=== PATIENT | male | born 1960 | race Caucasian/White ===

== ENCOUNTER → 2022-06-15 08:32 | Outpatient (BNVA) | payer OTHER, SELFPAY | PROVIDERS: Referring Provider Nurse Practitioner Family; Visit Provider Specialist | DX: M17.0 Bilateral primary osteoarthritis of knee (principal) | CPT/HCPCS: 73560; 73565 ==

== ENCOUNTER 2022-09-14 07:40 | Outpatient (CLI) | payer OTHER, SELFPAY ==
--- NOTE | 2022-09-14 08:00 | MR_ITS ---
WS: [id number] MRI LEFT KNEE HISTORY: Progressive LEFT knee pain. COMPARISON: Radiographs 06/15/2022 Anterior cruciate ligament: Intact. Posterior cruciate ligament: Intact. Medial collateral ligament: Intact. Posterior lateral corner structures: Intact. Medial menisci: Small amount of increased T2 signal in the periphery posterior horn. Suspicious for p eripheral tear. Lateral meniscus: Blunting posterior horn lateral meniscus. There is increased T2 signal involving th e free edge extending to the inferior articular surface of possibly the superior surface. There is so ft tissue thickening surrounding the meniscus. Markedly abnormal signal throughout the meniscus towar ds the meniscal root. Extensor mechanism: Distal quadriceps tendon and patellar tendons are intact. Fluid and soft tissue: Small suprapatellar joint effusion. Loose bodies are present in the joint effu aliya. There is increased fluid signal extending along the medial knee. No Verduzco's cyst. Osseous and articular structures: Patellofemoral compartment: Mild chondromalacia. No marrow edema. Medial compartment: Moderate narrowing of the medial compartment. Extensive loss of the cartilage. Ma rrow edema in the femoral condyle and tibial plateau. There are a few small osteochondral defects inv olving both the superficial tibial and condylar surfaces. Lateral compartment: Mild narrowing of the lateral compartment. Thinning and fissuring and loss of th e normal cartilage. Increased fluid signal in the infrapatellar fat pad. MR/MR knee LT wo con* [id number] IMPRESSION: 1. Complex tear posterior horn lateral meniscus with extension to involve the free edge and also the meniscal root. 2. Additional tear suspected in the very peripheral posterior horn medial meni scus. 3. Small joint effusion with loose body. 4. Moderate medial compartment and mild lateral compartment loss of cartilage with subchondral edema and joint space narrowing. 5. Mild patellar chondromalacia.
== END 2022-09-14 07:41 | disposition home or self-care (01) ==
PROVIDERS: PCP Family Medicine; Visit Provider Specialist
DX: M17.0 Bilateral primary osteoarthritis of knee (principal); S83.232A Complex tear of medial meniscus, current injury, left knee, initial encounter; X58.XXXA Exposure to other specified factors, initial encounter; M25.462 Effusion, left knee; M22.42 Chondromalacia patellae, left knee
CPT/HCPCS: 73721

== ENCOUNTER → 2023-03-22 08:46 | Outpatient (BNVA) | payer OTHER, SELFPAY | PROVIDERS: PCP Family Medicine; Visit Provider Specialist | DX: M17.0 Bilateral primary osteoarthritis of knee (principal) | CPT/HCPCS: 73560; 73565 ==

== ENCOUNTER 2023-04-02 07:34 | Outpatient (CLI) | payer OTHER, SELFPAY ==
--- NOTE | 2023-04-02 07:30 | CT_ITS ---
WS: [id number] CT RIGHT knee, noncontrast HISTORY: right knee pain TECHNIQUE: Protocol for THIERRY total knee replacement has been obtained. This includes axial imaging th rough the RIGHT hip, RIGHT knee and RIGHT ankle. DLP: 1066.87 mGy COMPARISON: None available. Normal hips. No destructive bone lesions. RIGHT knee: Mild tricompartment joint space narrowing. Small suprapatellar joint effusion. RIGHT ankle: Negative. IMPRESSION: CT imaging provided for THIERRY robotic total knee replacement.
== END 2023-04-02 07:35 | disposition home or self-care (01) ==
PROVIDERS: PCP Family Medicine; Visit Provider Specialist
DX: M17.0 Bilateral primary osteoarthritis of knee (principal)
CPT/HCPCS: 73700

== ENCOUNTER 2023-04-28 08:45 | Outpatient (CLI) | payer MEDICAID, SELFPAY ==
[2023-04-28 09:39] LABS: Add Urine Microscopic? NO; Charge for UA Resulting for Rev
[2023-04-28 09:41] LABS: Basophils # 0.1 10^3/uL (0.0-0.1); Eosinophils # 0.1 10^3/uL (0.0-0.8); Eosinophils % 2.2 %; Hematocrit 43.3 % (37-53); Lymphocytes # 0.9 10^3/uL (0.8-4.8); Lymphocytes % 17.3 %; Mean Corpuscular HGB Conc 32.8 g/dL (30-55); Mean Corpuscular Hemoglobin 29.8 pg (27-33); Mean Platelet Volume 10.8 fL (7.4-10.4); Monocytes # 0.3 10^3/uL (0.2-0.9); Monocytes % 6.1 %; Neutrophils # 3.68 10^3/uL (1.8-7.7); Neutrophils % 72.2 %; Nucleated Red Blood Cells % 0 %; Platelet Count 213 10^3/cmm (157-399); Red Blood Count 4.76 10^6/uL (3.85-5.65); Red Cell Distribution Width 12.6 % (12.1-15.1); White Blood Count 5.09 10^3/uL (3.29-11.43)
[2023-04-28 09:51] LABS: Bilirubin Urine Neg (Negative); Blood Urine Neg (Negative); Glucose Urine UA Norm (Normal); Ketones Urine Negative (Negative); Leukocyte Esterase Urine Negative (Negative); Nitrate Urine Negative (Negative); Protein Urine Neg (Negative); Specific Gravity, Urine 1.015 (1.005-1.030); Urine Appearance Clear (CLEAR); Urine Color Yellow (Yellow); Urobilinogen Urine Norm (Negative); pH Urine 6.5 (5-7)
[2023-04-28 09:59] LABS: Alanine Aminotransferase 33 U/L (0-41); Albumin Level 4.2 g/dL (3.5-5.2); Alkaline Phosphatase 46 U/L (40-130); Aspartate Amino Transferase 19 U/L (0-40); Blood Urea Nitrogen 22 mg/dL (8-23); Calcium 9.1 mg/dL (8.5-10.5); Carbon Dioxide 28 mmol/L (22-29); Chloride 103 mmol/L (98-107); Globulin 2.5 g/dL (1.3-4.6); Glomerular Filtration Rate 85.2 mL/min (90-130); Glucose 100 mg/dL (65-115); Osmolality Calculated 291 mOsm/kg (285-295); Sodium 139 mmol/L (136-145); Total Bilirubin 0.5 mg/dL (0.15-1.2); Total Protein 6.7 g/dL (6.6-8.7)
== END 2023-04-28 08:46 | disposition home or self-care (01) ==
PROVIDERS: PCP Family Medicine; Visit Provider Specialist
DX: Z01.818 Encounter for other preprocedural examination (principal)
CPT/HCPCS: 80053; 81003; 85025

== ENCOUNTER 2023-05-11 12:50 | Observation (INO) | payer OTHER, MEDICAID, SELFPAY ==
[2023-05-11] VITALS (13 sets, daily range): BP systolic 139–168; BP diastolic 88–108; PULSE 69–96; RESP 16–18; TEMP 36.1–36.4; O2SAT 93–98; BMI 30.4
[2023-05-11] MEDS: sodium chloride 0.9% 1,000 ML 30 ML IV (11:22)
[2023-05-11] MEDS: acetaminophen 1,000 MG/100 ML PIGGYBACK 400 MG IV ×2 (11:23→17:24)
[2023-05-11] MEDS: CELEcoxib 200 mg Capsule 400 MG PO (11:23)
[2023-05-11] MEDS: gabapentin 300 mg Capsule PO (11:23)
--- NOTE | 2023-05-11 12:05 | ANES.PREANE2 ---
Pre-Anesthetic Assessment Height/Weight: Height 1.74 m Weight 92.079 kg Temp Pulse Resp BP Pulse Ox O2 Del Method 96.9 F L 69 18 157/104 98 Room Air 05/11/23 11:36 05/11/23 11:36 05/11/23 11:36 05/11/23 11:36 05/11/23 11:36 05/11/23 11:36 Operation Date: 05/11/23 12:20 Proposed Procedures p RIGHT TOTAL KNEE ARHTORPLASTY WITH THIERRY GUIDANCE 21480,M17.10(Right) - Reema Sommers MD Familial anesthetic complications: None Was Beta Ankita taken within 24 hours: N/A Was Clonidine taken within 24 hours: N/A Last intake: Intake Last Liquid Date 05/10/23 Last Liquid Time 22:00 Last Solid Date 05/10/23 Last Solid Time 23:00 Social No alcohol and No tobacco Exam alert, oriented x 3, clear to auscultation bilaterally and regular rate & rhythm Airway Mallampati: Class II Dentition: false GI Gastroesophageal Reflux Disease Anesthetic Plan ASA status: 2 Anesthesia: Regional (specify below) Risk of > 500 ml blood loss (7ml/kg in children): No Medications/Allergies Home Medications Medication Instructions Recorded Confirmed Last Taken Type cetirizine 10 mg capsule (Allergy 10 mg PO DAILY PRN Allergy Symptoms 06/15/22 05/10/23 05/03/23 History Relief (cetirizine)) diclofenac potassium 50 mg tablet 50 mg PO TID 06/15/22 05/10/23 05/03/23 History famotidine 40 mg tablet 40 mg PO DAILY 05/05/23 05/11/23 1 Day Ago History ~05/10/23 Allergies Allergy/AdvReac Type Severity Reaction Status Date / Time No Known Allergies Allergy Verified 05/11/23 11:00 Current Medications Generic Name Dose Route Start Last Admin Trade Name Freq PRN Reason Stop Dose Admin Sodium Chloride 1,000 mls @ 30 mls/hr 05/11/23 10:45 05/11/23 11:22 Sodium Chloride 0.9% IV 05/12/23 10:44 30 mls/hr .Q24H RUKHSANA Administration Data Anesthesia Cardiac Studies: No Data to Display
--- NOTE | 2023-05-11 12:05 | ANES.PROC ---
Anesthesia Procedures Procedure/Date: 05/11/23 Nerve Block ^: Nerve Block 1: Main Anesthesia: spinal anesthesia block Time Out Performed: Yes Consent: requested by attending/covering physician, from patient, from other, risks and benefits reviewed and patient agrees to proceed Nerve block location: adductor canal (R) Anesthesia monitors applied: pulse oximetry, EKG, BP cuff and oxygen Nerve block position: supine Anesthetic Used: ropivicaine 0.5% (30 ml) and with decadron (4 mg) Ultrasound used to: recognize landmarks and visualize and ID femerol nerve Nerve Stimulator Used?: No Interscalene/Femoral BLK: 4 stimuplex 21 g needle used for position and inplane approach, visualize local anesthetic spread and no vascular puncture identified Injection: neg aspiration of heme Patient Tolerated Procedure: well Complications: none
--- NOTE | 2023-05-11 12:26 | P.HPUD_ITS ---
Surgery/Procedure H&P Update DATE OF PROCEDURE: May 11, 2023 DATE H&P PERFORMED: 05/05/23 H&P UPDATE INFORMATION: I have reviewed H&P completed within last 30 days, I have examined patient prior to procedure, No changes to prior documentation and H&P is in [facility] [place] [place] EMR on date indicated PLANNED PROCEDURE: Operation Date: 05/11/23 12:20 Proposed Procedures p RIGHT TOTAL KNEE ARHTORPLASTY WITH THIERRY GUIDANCE 09010,M17.10(Right) - Reema Sommers MD Related Problem List Diagnoses (1) Primary osteoarthritis of right knee:
[2023-05-11] MEDS: ceFAZolin 2,000 MG in sodium chloride 0.9% (plus) 50 ML 100 MG IV (12:33)
[2023-05-11] MEDS: tranexamic acid 1,000 mg/10mL SDV 1000 MG IV (13:23)
[2023-05-11] MEDS: vancomycin 1,000 MG SDV 1000 MG XX (13:36)
[2023-05-11] MEDS: BUPivacaine 0.5% INJ 30 mL INJECTION (13:37)
[2023-05-11] MEDS: BUPivacaine liposome 13.3 mg/mL SDV 10 mL 266 MG INFILTRATI (13:37)
[2023-05-11] MEDS: ceFAZolin 1,000 mg SDV 2000 MG IRRIGATION (13:37)
--- NOTE | 2023-05-11 14:02 | ANES.PROC ---
Anesthesia Procedures Procedure/Date: 05/20/23 Spinal Procedure Narrative: Sat upright. L3-4 Id by palpation. Chloroprep, Sterile drape. 3cc !% lidocaine for local. 24 pecan spinal needle 4inch insert L3-4 x1 attempt aseptic technique. Negative heme, negative parasthesia, positive CSF. 2cc .75% spinal bupivicaine injected with swirl noted. Sat upright for 1 minute before returning supine. T10 level appreciated. Lumbar Puncture: Consent: from patient (Per Dr. Parada), risks and benefits reviewed and patient agrees to proceed Patient Position: upright Skin Prep: 0.5% Chlorhexidine/Alcohol Local anesthetic used: Lidocaine 1% Amount of anesthesia used (mL): 22 Interspace Used: L3-L4 Fluid Initially Obtained: clear Complications: none
--- NOTE | 2023-05-11 15:29 | P.MISC_ITS ---
Miscellaneous Note Purpose of Documentation: Intraoperative regurgitation Note: Called to OR for episode of patient vomiting/regurgitation. Patient regurgitated moderate amount of yellow bilious, nonparticulate fluid. CLASSROOM INSTRUCTIONAL AIDE Lumbley had already turned patient and suctioned mouth, Propofol gtt had been stopped. O2 sat lowest of 90%. Thereafter, we applied high flow O2, propofol bolus and succinylcholilne and Jose Manuel ANGUIANO intubated patient successfully, ETT suction applied with minimal bilious fluid returned, then ETT was connected to circuit to ventilate. Jose Manuel ANGUIANO/MAURI XIAO performed limited fiberoptic bronchoscope exam of airways to visually assess for presence of bilious fluid. Trace amount discovered near carroll adhered to wall. No other bile visualized in R or L lungs. Will obtain baseline CXR in PACU and observe patient in hospital for any development of significant hypoxemia/fever/SOB. If develops will consult medicine. If no hypoxemia/fever/SOB, patient can be discharged with instructions to return to ER or visit urgent care/PC for possible interval development of aspiration pneumonia.
--- NOTE | 2023-05-11 15:42 | XRR_ITS ---
PROCEDURE INFORMATION: Exam: XR Chest Exam date and time: 05/11/2023 4:20 PM Age: 62 years old Clinical indication: Other: Poss aspiration; Additional info: Possible aspiration TECHNIQUE: Imaging protocol: Radiologic exam of the chest. Views: 1 view. COMPARISON: No relevant prior studies available. FINDINGS: Lungs: There is mild pulmonary vascular congestion. Hazy opacities in the mid to upper right lung are noted, concerning for aspiration pneumonitis or developing pneumonia in the proper clinical setting. No focal consolidation. Pleural spaces: No evidence of pneumothorax or pleural effusion. Heart/Mediastinum: Cardiomediastinal silhouette is within normal limits. Bones/joints: No evidence of acute osseous abnormality. XR/XR chest 1V portable [id number] IMPRESSION: 1. Hazy opacities in the mid to upper right lung concerning for aspiration pneumonitis or developing pneumonia in the proper clinical setting. 2. Mild pulmonary vascular congestion.
--- NOTE | 2023-05-11 15:55 | PM.OP ---
Operative Report Date of procedure: May 11, 2023 Pre-op diagnosis: Severe degenerative osteoarthritis right knee with slight varus deformity Post-op diagnosis: Severe degenerative osteoarthritis right knee with slight varus deformity Post-op findings: Severe degenerative osteoarthritis involving all 3 compartments Procedure done: Right total knee arthroplasty with Anton guidance Implants: The Rigoberto total knee system with a size 5 triathlon beaded cruciate retaining femur right, a triathlon titanium tibial component size 5 beaded, a triathlon X3 tibial bearing CS insert size 5 X 9 mm and a beaded triathlon titanium asymmetric patella size 35 x 10 mm Specimens removed/disposition: Bone, disposed of Pathology: None Surgeon: Reema Sommers MD Authorization Representative: Lia Denis, nurse practitioner, who services were essential for positioning, retraction, closure, and completion of the surgical procedure. Anesthesia: Spinal (With preoperative adductor block and MAC, ASA 2, converted to general intubated) Estimated blood loss (mL): 160 Tourniquet time (min): 0 (Not utilized) IV fluids (mL): 1,400 Urine output (mL): 150 Complications: Possible aspiration pneumonia secondary to emesis at the time of surgery. This occurred near to the end of surgery. The patient was intubated and suctioned. No obvious aspiration with glide scope. Findings: Severe degenerative osteoarthritis right knee involving all 3 compartments Condition: stable Disposition: PACU (Then to floor for postoperative rehabilitation and pain management) Brief History: This is a 62-year-old gentleman who is here today for right total knee arthroplasty. Patient was initially evaluated for bilateral degenerative osteoarthritis of the knees. He felt that his right was worse than his left, and therefore, he wanted to start with this side. Risk and complications were discussed with the patient in the office. Questions were answered and consents were signed. Prior to being seen in the office, the patient notes that he has significant limitations in activities of daily living. He did not have sufficient improvement with conservative measures such as injection therapy and anti-inflammatories. Procedure: The patient was brought to the operating theater, and after undergoing spinal anesthetic, with supplemental adductor canal block, ASA 3, the right lower extremity was prepped with Dura-Prep and draped in usual fashion following placement of a tourniquet high on the leg. The leg was then draped free.? Tourniquet was not elevated during the case.? A surgical pause was performed, and at the time of the surgical pause, we confirmed the site and side of surgery. Additionally, we confirmed the appropriate and timely administration of preoperative antibiotics, Ancef 2 g and Transexemic acid 1 g.? The availability of equipment was confirmed, and the patient's identity was verbalized as well. Following the surgical pause, an incision was made centering over the patella continuing proximally and distally as necessary to allow access to the knee joint. Dissection continued through skin and soft tissues using a scalpel. Hemostasis was obtained using electrocautery. The skin incision was followed by a median parapatellar arthrotomy. The leg was extended and the patella was able to be displaced laterally.? Appropriate arrays and markers were placed in appropriate position for use of the Anton.? Preoperative planning had been accomplished and was discussed in detail with the Anton electronics parts sales representative.? Intraoperative mapping of the femur and tibia was accomplished after the arrays were placed.? Internal markers were also placed.? Once we had accomplished the Anton mapping, we began the appropriate resections for placement of the prosthesis.? The plan was for a cruciate retaining right total knee arthroplasty. Once appropriate mapping had been accomplished retraction was established using manual retraction by surgical garment inspector and also the Anton leg positioner and retractors.? The knee was evaluated.? There was significant osteoarthritic change as well as slight flexion contracture.? Appropriate bone resection was accomplished using the Anton.? The femur was sized to a size 5.? Following femoral cuts, attention was directed to the tibia.? Osteophytes were removed prior to this portion of the procedure.? We had performed a minimal medial release at the beginning of the procedure to allow for placement of the array.? Proximal tibia was evaluated, and it was felt that appropriate size for the tibia was a size 5.? Tray was noted to fit nicely with good coverage.? Rim fit was accomplished with the size 5. A trial reduction was accomplished after osteophytes have been removed as well as the medial and lateral menisci.? We had removed the anterior cruciate ligament at the beginning of the case and preserved the posterior cruciate ligament.? Trial reduction was accomplished with a size 5 femoral cruciate retaining component and a size 5 CS tibial bearing insert which was 9 mm.? Alignment was felt to be appropriate as well.? Trial components were removed after the femur had been drilled.? Prior to removal of the tibial tray which had been pinned in position with appropriate rotation as determined by the Anton plan, we broached the tibia.? Subsequently, the 4 drill holes were made for the prosthetic component.? All trial components were removed, and the wound was irrigated.? Plans were made for insertion of the prosthetic components.? Prior to this, the patella was manually prepared.? After resection of the articular surface with the jogging system, it was measured and measured a 35 mm patella.? We resected approximately 7 mm of patella.? Patellar height was restored with the patellar component. Once again, the wound was irrigated.? The Tritanium tibia was impacted into position.? The beaded femur was then impacted into position in a cementless fashion. The CS tibial insert was placed prior to placement of the femoral component. The patella was pressed into position with a patellar clamp.? Exparel was injected about the components deep and superficially.? The knee was then copiously irrigated with betadine and saline and suctioned dry. Attention was then directed to closure. Closure was accomplished with 0 Vicryl in the fascial tissues.? The suture line of 0 Vicryl was supplemented with strata fix, #1, with a running stitch from proximal to distal and a second running stitch from distal to proximal.? This was followed by Surgiflo and vancomycin powder.? Following this, a 2-0 Monocryl was used in the subcutaneous tissues, and the skin was closed with 3-0 Strata fix.? Care was taken to assure an excellent subcutaneous as well as skin closure.? A sterile dressing was then placed consisting of Dermabond Prineo, OpSite, ABD, sterile soft roll, and an Raul wrap including over the foot. The patient was returned the Recovery Room in a satisfactory condition. X-rays were obtained and reviewed there.? The patient will be discharged to the floor for postoperative rehabilitation and pain management. Related Problem List Diagnoses (1) Primary osteoarthritis of right knee:
--- NOTE | 2023-05-11 16:18 | XRR_ITS ---
PROCEDURE INFORMATION: Exam: XR Right Knee Exam date and time: 05/11/2023 4:23 PM Age: 62 years old Clinical indication: Device placement; Joint replacement hardware; Additional info: Status post right total knee arthroplasty TECHNIQUE: Imaging protocol: Radiologic exam of the right knee. Views: 1 or 2 views. COMPARISON: CT knee RT [facility] [id number] 04/02/2023 7:56 AM FINDINGS: Bones/joints: Postoperative radiographs status post total right knee arthroplasty with components in expected position. Soft tissues: Postoperative radiographs status post total right knee arthroplasty with components in expected position. XR/XR knee RT 1-2V [id number] IMPRESSION: 1. Postoperative radiographs status post total right knee arthroplasty with components in expected position.
--- NOTE | 2023-05-11 16:55 | PM.MISC ---
Miscellaneous Note Note: Received call from Radiologist regarding airspace opacities already present in RUL on CXR. Consulted medicine for further management of aspiration pneumonia/pneumonitis
[2023-05-11] MEDS: CELEcoxib 200 mg Capsule PO (17:24)
[2023-05-11] MEDS: mupirocin oint 22 gm 1 APPLIC NASAL (17:24)
[2023-05-11] MEDS: calcium carbonate 500 mg Chew Tablet 1000 MG PO (17:25)
[2023-05-11] MEDS: iron polysaccharide complex 150 mg Capsule PO (17:25)
[2023-05-11] MEDS: sennosides-docusate Tablet 2 TAB PO (17:25)
[2023-05-11] MEDS: piperacillin-tazobactam 3.375 GM in sodium chloride 0.9% (plus) 50 ML IV (17:25)
[2023-05-11] MEDS: oxyCODONE 5 mg IR Tab/Cap PO ×2 (17:40→21:31)
[2023-05-11] MEDS: chlorhexidine gluconate 0.12% Btl 473 mL 30 ML MUCOUS MEM ×2 (17:42→21:31)
--- NOTE | 2023-05-11 18:17 | P.CONIM_ITS ---
Providers/Reason For Consult Consulting Physician/Specialty*: Hospitalist Reason for Consult*: Postoperative aspiration Attending Physician: Reema Sommers MD Primary Care Provider: Mayur Urena MD History of Present Illness History of Present Illness Rodney Mitchell is a 62 year old male had an episode of emesis postoperatively, x-ray consistent with pneumonitis, afebrile, currently requiring 1 to 1.5 L, does not use oxygen at home, at the time of evaluation he is working with physical therapy. No active signs of sepsis. He has been started on Zosyn. Review of Systems Const: Denies: fever(s) Eyes: Denies: change in vision ENMT: Denies: throat pain Card: Denies: chest pain Resp: Denies: dyspnea GI: Denies: abdominal pain : Denies: flank pain Musc: Denies: neck pain Skin/Breast: Denies: rash Neuro: Denies: headache(s) Psych: Reports: anxiety Medications/Allergies Home Medications Medication Instructions Recorded Confirmed Last Taken Type cetirizine 10 mg capsule (Allergy 10 mg PO DAILY PRN Allergy Symptoms 06/15/22 05/10/23 05/03/23 History Relief (cetirizine)) diclofenac potassium 50 mg tablet 50 mg PO TID 06/15/22 05/10/23 05/03/23 History famotidine 40 mg tablet 40 mg PO DAILY 05/05/23 05/11/23 1 Day Ago History ~05/10/23 Allergies Allergy/AdvReac Type Severity Reaction Status Date / Time No Known Allergies Allergy Verified 05/11/23 11:00 Current Medications Generic Name Dose Route Start Last Admin Trade Name Freq PRN Reason Stop Dose Admin Calcium Carbonate 1,000 mg 05/11/23 18:00 05/11/23 17:25 Calcium Carbonate 500 Mg Chew Tablet PO 1,000 mg BID RUKHSANA Administration Celecoxib 200 mg 05/11/23 16:30 05/11/23 17:24 Celecoxib 200 Mg Capsule PO 200 mg Q12H RUKHSANA Administration Chlorhexidine Gluconate 30 ml 05/11/23 17:00 05/11/23 17:42 Chlorhexidine Gluconate 0.12% Btl 473 Ml MUCOUS MEM 30 ml QID RUKHSANA Administration Acetaminophen 1,000 mg in 100 mls @ 400 mls/hr 05/11/23 16:30 05/11/23 17:44 Acetaminophen IV 05/12/23 08:44 Infused Q8H RUKHSANA Infusion Piperacillin Sod/Tazobactam 50 mls @ 12.5 mls/hr 05/11/23 17:00 05/11/23 17:25 Sod 3.375 gm/ Sodium Chloride IV 12.5 mls/hr Q8H RUKHSANA Administration Protocol Mupirocin 1 applic 05/11/23 18:00 05/11/23 17:24 Mupirocin Oint 22 Gm NASAL 05/16/23 17:59 1 applic BID RUKHSANA Administration Protocol Oxycodone HCl 5 mg 05/11/23 16:19 05/11/23 17:40 Oxycodone 5 Mg Ir Tab/Cap PO 5 mg Q4H PRN Administration MODERATE PAIN Polysaccharide Iron Complex 150 mg 05/11/23 18:00 05/11/23 17:25 Iron Polysaccharide Complex 150 Mg Capsule PO 150 mg BIDWM RUKHSANA Administration Senna/Docusate Sodium 2 tab 05/11/23 18:00 05/11/23 17:25 Sennosides-Docusate Tablet PO 2 tab BID RUKHSANA Administration Vitals/I&O/Wt Last Vital Signs Temp 97.6 F 05/11/23 16:41 Pulse 83 05/11/23 16:41 Resp 17 05/11/23 17:40 BP 149/92 05/11/23 16:41 Pulse Ox 96 05/11/23 16:41 O2 Del Method Nasal Cannula 05/11/23 16:41 O2 Flow Rate 95 05/11/23 16:11 05/11/23 05/11/23 05/11/23 06:59 14:59 22:59 Intake Total 1150 / 1150 700 / 1850 Output Total 560 / 560 Balance 1150 / 1150 140 / 1290 Weight last 48 hrs Weight 92.079 kg Physical Exam Narrative: Currently 1.5 L Working with PT Nonfocal neuroexam GCS 15 No audible stridor or wheezing No active rhonchi or crackles Abdomen soft Pleasant and cooperative Urinary Catheter Management: Rodriguez: Cath Placed During This Visit: yes Reason for Continuing Indwelling Catheter: Other Urinary Catheter Date of Insertion: 05/11/23 Urinary Catheter Time of Insertion: 13:00 A&P Assessment and plan (1) Aspiration pneumonitis: Consult Attestations Medical Necessity Statement: Aspiration postoperative Considering air-fluid level on chest x-ray I would go ahead and start patient on Zosyn for now empirically I am aware that guidelines recommend 48 hours of observation for aspiration pneumonitis however considering a fluid level I will go ahead and resume broad- spectrum anaerobic gram-negative coverage for now monitor for any signs of sepsis overnight Patient is afebrile hemodynamically stable Time Spent in Patient Care: 30 Diagnoses Aspiration pneumonitis J69.0
[2023-05-11 20:08] LABS: Basophils % 0.2 %; Hematocrit 43.3 % (37-53); Lymphocytes # 0.5 10^3/uL (0.8-4.8); Lymphocytes % 3.3 %; Mean Corpuscular HGB Conc 32.6 g/dL (30-55); Mean Corpuscular Hemoglobin 29.9 pg (27-33); Mean Corpuscular Volume 91.9 fl (82-101); Monocytes # 0.2 10^3/uL (0.2-0.9); Monocytes % 1.5 %; Neutrophils # 13.56 10^3/uL (1.8-7.7); Neutrophils % 94.4 %; Nucleated Red Blood Cells % 0 %; Platelet Count 201 10^3/cmm (157-399); Red Blood Count 4.71 10^6/uL (3.85-5.65); Red Cell Distribution Width 12.4 % (12.1-15.1); White Blood Count 14.36 10^3/uL (3.29-11.43)
[2023-05-11] MEDS: tranexamic acid 1,000 MG/100 ML PREMIX 600 MG IV (21:30)
[2023-05-12 00:18] VITALS: BP 121/69; PULSE 106; RESP 18; TEMP 36.1; O2SAT 93
[2023-05-12] MEDS: acetaminophen 1,000 MG/100 ML PIGGYBACK 400 MG IV ×2 (00:37→08:48)
[2023-05-12] MEDS: piperacillin-tazobactam 3.375 GM in sodium chloride 0.9% (plus) 50 ML IV ×2 (01:07→08:48)
[2023-05-12] MEDS: CELEcoxib 200 mg Capsule PO (05:28)
[2023-05-12 05:35] LABS: Basophils % 0.1 %; Lymphocytes # 0.7 10^3/uL (0.8-4.8); Lymphocytes % 4.3 %; Mean Corpuscular HGB Conc 33.2 g/dL (30-55); Mean Corpuscular Hemoglobin 30.3 pg (27-33); Mean Corpuscular Volume 91.3 fl (82-101); Mean Platelet Volume 10.5 fL (7.4-10.4); Monocytes # 0.8 10^3/uL (0.2-0.9); Monocytes % 5.3 %; Neutrophils # 13.65 10^3/uL (1.8-7.7); Neutrophils % 89.8 %; Nucleated Red Blood Cells % 0 %; Platelet Count 217 10^3/cmm (157-399); Red Blood Count 4.16 10^6/uL (3.85-5.65); Red Cell Distribution Width 12.4 % (12.1-15.1); White Blood Count 15.19 10^3/uL (3.29-11.43)
[2023-05-12 05:54] LABS: Anion Gap 13.3 (5-19); Blood Urea Nitrogen 19 mg/dL (8-23); Calcium 8.7 mg/dL (8.5-10.5); Carbon Dioxide 25 mmol/L (22-29); Chloride 104 mmol/L (98-107); Glomerular Filtration Rate 75.5 mL/min (90-130); Glucose 166 mg/dL (65-115); Osmolality Calculated 292 mOsm/kg (285-295); Potassium 4.3 mmol/L (3.5-5.1); Sodium 138 mmol/L (136-145)
[2023-05-12 06:00] VITALS: BMI 30.4
[2023-05-12 06:08] VITALS: RESP 18; O2SAT 95
[2023-05-12] MEDS: oxyCODONE 5 mg IR Tab/Cap PO ×3 (06:08→14:40)
[2023-05-12 07:26] VITALS: BP 128/78; PULSE 94; RESP 18; TEMP 37.1; O2SAT 96
[2023-05-12] MEDS: multivitamin therapeutic Tablet 1 TAB PO (08:47)
[2023-05-12] MEDS: sennosides-docusate Tablet 2 TAB PO (08:47)
[2023-05-12] MEDS: iron polysaccharide complex 150 mg Capsule PO (08:47)
[2023-05-12] MEDS: calcium carbonate 500 mg Chew Tablet 1000 MG PO (08:47)
[2023-05-12] MEDS: cholecalciferol (vitamin D3) 1,000 unit Tablet 1000 UNIT PO (08:48)
[2023-05-12] MEDS: aspirin 325 mg EC Tablet PO (08:48)
[2023-05-12] MEDS: mupirocin oint 22 gm 1 APPLIC NASAL (08:48)
[2023-05-12] MEDS: chlorhexidine gluconate 0.12% Btl 473 mL 30 ML MUCOUS MEM ×2 (08:48→13:12)
[2023-05-12 10:29] VITALS: RESP 18; O2SAT 96
--- NOTE | 2023-05-12 11:36 | P.PN_ITS ---
Subjective 2 Subjective: Patient is on room air Feeling better Awake and alert No overnight events Vitals/I&O/Wt Last Vital Signs Temp 98.7 F 05/12/23 07:26 Pulse 94 05/12/23 07:26 Resp 18 05/12/23 10:29 BP 128/78 05/12/23 07:26 Pulse Ox 96 05/12/23 10:29 O2 Del Method Nasal Cannula 05/11/23 18:41 O2 Flow Rate 1 05/11/23 18:41 05/11/23 05/12/23 05/12/23 22:59 06:59 14:59 Intake Total 1330 / 2480 650 / 3130 101.667 / 101.667 Output Total 560 / 560 400 / 960 Balance 770 / 1920 250 / 2170 101.667 / 101.667 Weight last 48 hrs Weight 92.079 kg Weight 92.079 kg Weight 92.079 kg Physical Exam 2 Narrative: No audible stridor or wheezing GCS 15 Pleasant cooperative S1, S2 Currently on room air Able to walk with minimal assistance Urinary Catheter Management: Rodriguez: Cath Placed During This Visit: yes, but has since been removed by the nurse Reason for Continuing Indwelling Catheter: Decision to DC Catheter Urinary Catheter Date of Insertion: 05/11/23 Urinary Catheter Time of Insertion: 13:00 Date Urinary Catheter Removed: 05/12/23 Time Urinary Catheter Discontinued: 07:05 Data 05/12/23 05:25 05/12/23 05:25 A&P Assessment and plan (1) Aspiration pneumonitis: Plan Patient can be discharged once cleared by orthopedics I will prescribe Augmentin 5-day regimen Leukocytosis expected with pneumonitis Patient is afebrile Doing well on room air Attestations 2 Medical Necessity Statement*: Continue medical management Diagnoses Aspiration pneumonitis J69.0
[2023-05-12 12:00] VITALS: BP 172/91; PULSE 101; RESP 18; TEMP 36.3; O2SAT 96
[2023-05-12] MEDS: hyDRALAzine 20 mg/mL INJ 1 mL 5 MG IVP (13:10)
[2023-05-12] MEDS: lisinopril 10 mg Tablet PO (13:10)
[2023-05-12 14:40] VITALS: RESP 18; O2SAT 96
--- NOTE | 2023-05-12 15:19 | PM.DCS ---
Discharge Providers Date of Admission: 05/11/23 12:50 Date of Discharge: May 12, 2023 Attending Provider at Admission: Reema Sommers MD Attending Provider at Discharge: Reema Sommers MD Consults: Dr. Caio Dent Primary Care Provider: Mayur Urena MD Diagnoses at Discharge Discharge Diagnosis (1) Status post total right knee replacement not using cement: Status: Acute Permanent problem details: Date of procedure: May 11, 2023 Diagnosis: Severe degenerative osteoarthritis right knee with slight varus deformity Procedure done: Right total knee arthroplasty with Anton guidance Implants: The fluid [employer] total knee system with a size 5 triathlon beaded cruciate retaining femur right, a triathlon titanium tibial component size 5 beaded, a triathlon X3 tibial bearing CS insert size 5 X 9 mm and a beaded triathlon titanium asymmetric patella size 35 x 10 mm (2) Primary osteoarthritis of right knee: Status: Inactive (3) Aspiration pneumonitis: Status: Inactive Reason for Visit Reason for Visit: M17.10 Brief History: This is a 62-year-old gentleman who presented yesterday for right total knee arthroplasty. Patient was initially evaluated for bilateral degenerative osteoarthritis of the knees. He felt that his right was worse than his left, and therefore, he wanted to start with this side. Risk and complications were discussed with the patient in the office. Questions were answered and consents were signed. Prior to being seen in the office, the patient notes that he has significant limitations in activities of daily living. He did not have sufficient improvement with conservative measures such as injection therapy and anti-inflammatories. Hospital Course Hospital Course Patient was admitted under observation status following same-day surgery for right total knee arthroplasty. He did have an event in the OR where he had emesis while laying on his back for knee arthroplasty. This was treated by the anesthesia team, and when they intubated the patient, they did not find significant emesis in the lungs, but there was concern for pneumonitis. Because of this consideration, medicine was consulted, and the patient was given Zosyn as his postoperative antibiotic rather than Ancef. He did well following the surgical procedure. There was no evidence of aspiration pneumonia, and the patient was able to be discharged home on the first postoperative day. There was no evidence of DVT or significant swelling about the knee. Physical Exam Const: COMMON NORMALS: no acute distress, average body habitus, patient oriented x3 and alert GENERAL APPEARANCE: cooperative and comfortable ORIENTATION/CONSCIOUSNESS: Yes awake HENMT: COMMON NORMALS: normocephalic and atraumatic HEAD & SCALP: normocephalic and atraumatic Eye: GENERAL EYE: appearance normal, both eyes and all related structures Chest: COMMONS NORMALS: normal inspection of the chest Resp: COMMON NORMALS: normal respiratory effort EFFORT & INSPECTION: Yes able to speak in complete sentences and Yes symmetric chest movement Extremity: RIGHT LOWER EXTREMITY: Yes knee joint (Large outer dressing is removed.) Right knee: Yes inspection (Minimal to no swelling or ecchymosis.), Yes palpation (Minimal discomfort.), Yes ROM (Not evaluated, able to straight leg raise) and Yes neurovascular exam (No evidence of DVT. Intact distally.) Neuro: COMMON NORMALS: patient oriented x3 SENSORIUM/ORIENTATION: Yes alert Psych: COMMON NORMALS: mental status grossly normal APPEARANCE: Yes grossly normal ATTITUDE: Yes calm and Yes engaged ATTENTION/CONCENTRATION: Yes attention grossly intact Skin: COMMON NORMALS: no rashes or lesions noted GENERAL SKIN EXAM: no rashes or lesions noted Urinary Catheter Management: Rodriguez: Cath Placed During This Visit: yes, but has since been removed by the nurse Reason for Continuing Indwelling Catheter: Decision to DC Catheter Urinary Catheter Date of Insertion: 05/11/23 Urinary Catheter Time of Insertion: 13:00 Date Urinary Catheter Removed: 05/12/23 Time Urinary Catheter Discontinued: 07:05 Discharge Data Studies Completed and Pending Completed Studies During Hospitalization Category Date Time Status CXRP [XR chest 1V portable [id number]] Urgent Exams 05/11/23 15:42 Completed XR knee RT 1-2V 99807 Routine Exams 05/11/23 16:18 Completed Pending at discharge Category Date Time Status MRSA [Methicillin Resistant S.aureu] Routine Lab 05/11/23 18:19 Ordered Radiology Impressions Chest X-Ray 05/11/23 15:42 IMPRESSION: 1. Hazy opacities in the mid to upper right lung concerning for aspiration pneumonitis or developing pneumonia in the proper clinical setting. 2. Mild pulmonary vascular congestion. ADDENDUM: 05/11/23 2650 The findings were verbally communicated by telephone with KRISTIAN Luevano at 4:49 PM MARKETING TRAFFIC MANAGER on 05/11/2023. The findings were acknowledged and understood. Knee X-Ray 05/11/23 16:18 IMPRESSION: 1. Postoperative radiographs status post total right knee arthroplasty with components in expected position. Laboratory Results WBC 15.19 10^3/uL (3.29-11.43) H 05/12/23 05:25 RBC 4.16 10^6/uL (3.85-5.65) 05/12/23 05:25 Hgb 12.60 g/dL (11.27-16.99) 05/12/23 05:25 Hct 38.0 % (37-53) 05/12/23 05:25 MCV 91.3 fl (82-101) 05/12/23 05:25 MCH 30.3 pg (27-33) 05/12/23 05:25 MCHC 33.2 g/dL (30-55) 05/12/23 05:25 RDW 12.4 % (12.1-15.1) 05/12/23 05:25 Plt Count 217 10^3/cmm (157-399) 05/12/23 05:25 MPV 10.5 fL (7.4-10.4) H 05/12/23 05:25 Neut % (Auto) 89.8 % 05/12/23 05:25 Lymph % (Auto) 4.3 % 05/12/23 05:25 [place] % (Auto) 5.3 % 05/12/23 05:25 Eos % (Auto) 0.0 % 05/12/23 05:25 Baso % (Auto) 0.1 % 05/12/23 05:25 Neut # (Auto) 13.65 10^3/uL (1.8-7.7) H 05/12/23 05:25 Lymph # (Auto) 0.7 10^3/uL (0.8-4.8) L 05/12/23 05:25 [place] # (Auto) 0.8 10^3/uL (0.2-0.9) 05/12/23 05:25 Eos # (Auto) 0.0 10^3/uL (0.0-0.8) 05/12/23 05:25 Baso # (Auto) 0.0 10^3/uL (0.0-0.1) 05/12/23 05:25 Nucleated RBC % (auto) 0 % 05/12/23 05:25 Nucleated RBCs # 0.0 /100WBC 05/12/23 05:25 Sodium 138 mmol/L (136-145) 05/12/23 05:25 Potassium 4.3 mmol/L (3.5-5.1) 05/12/23 05:25 Chloride 104 mmol/L (98-107) 05/12/23 05:25 Carbon Dioxide 25 mmol/L (22-29) 05/12/23 05:25 Anion Gap 13.3 (5-19) 05/12/23 05:25 BUN 19 mg/dL (8-23) 05/12/23 05:25 Creatinine 1.0 mg/dL (0.7-1.2) 05/12/23 05:25 GFR Calculation 75.5 mL/min (90-130) L 05/12/23 05:25 Glucose 166 mg/dL (65-115) H 05/12/23 05:25 Calculated Osmolality 292 mOsm/kg (285-295) 05/12/23 05:25 Lactate 3.0 mmol/L (0.5-2.2) H 05/11/23 19:52 Calcium 8.7 mg/dL (8.5-10.5) 05/12/23 05:25 Vitals Last Vital Signs Temp 97.3 F L 05/12/23 12:00 Pulse 101 H 05/12/23 12:00 Resp 18 05/12/23 14:40 BP 172/91 05/12/23 12:00 Pulse Ox 96 05/12/23 14:40 O2 Del Method Nasal Cannula 05/11/23 18:41 O2 Flow Rate 1 05/11/23 18:41 Discharge Plan Discharge Patient Disposition: Home Health Service Condition: Stable Prescriptions: New amoxicillin-pot clavulanate 875-125 mg tablet 1 tab PO BID Qty: 10 0RF lisinopril 10 mg tablet 10 mg PO DAILY Qty: 60 2RF chlorthalidone 15 mg tablet 15 mg PO DAILY Qty: 60 0RF celecoxib 200 mg Capsule 200 mg PO Q12H 30 Days Qty: 60 0RF acetaminophen 500 mg Tablet 1,000 mg PO Q8H Qty: 0 0RF aspirin 325 mg Tablet,Delayed Release (Dr/Ec) 325 mg PO DAILY 30 Days Qty: 0 0RF oxycodone 5 mg Tablet 5 mg PO Q4H PRN (Reason: Moderate Pain) 7 Days Qty: 40 0RF Continued Allergy Relief (cetirizine) 10 mg capsule 10 mg PO DAILY PRN (Reason: Allergy Symptoms) famotidine 40 mg tablet 40 mg PO DAILY No Action diclofenac potassium 50 mg tablet 50 mg PO TID Discharge Orders: Discharge Order (Routine); Ordered 05/12/23 Ordered By: Reema Sommers Other Ambulatory Orders: DME: Walker (Order) Location: None Selected Ordered By: Reema Sommers Referrals: [facility] [Outside] Reema Sommers MD [Physician] - 05/24/23 8:30 am Discharge Diet: Advance as tolerated and Usual diet Discharge Activity: Increase activity as tolerated, Limit activity as instructed, Use walker/crutches as instructed and As per PT/OT instructions Patient Instructions: Lisinopril (By mouth), Aspirin (By mouth), Amoxicillin/Clavulanate Potassium (By mouth) (Augmentin, Augmentin..., Chlorthalidone (By mouth), Celecoxib (By mouth), Oxycodone, Slow Release (By mouth) (Oxycontin, Xtampza ER), Joint Replacement Surgery (DC), Opioid Safety Activity Restrictions/Additional Instructions: Ice and elevate right lower extremity. Range of motion, gait training, and strengthening per physical therapy. You may shower, but do not remove your clear plastic dressing until it comes off on its own. Do not soak your knee in water. Discharge Attestations Time Spent in Discharge Care*: greater than 30 min Specific Discharge Activities: educating patient, documenting/other paperwork and evaluating patient/reviewing data Quality Metrics Clinical Quality Measures [ No reported AMI, CVA or VTE this stay] Coding Level of Care Code Acute Code for Chg Fwd Diagnoses Status post total right knee replacement not using cement Z96.651 Primary osteoarthritis of right knee M17.11 Aspiration pneumonitis J69.0
== END 2023-05-12 16:48 | disposition home health service (06) ==
LOC: MEDSURG 12:51
PROVIDERS: Internal Medicine; Admitting Provider Specialist; PCP Family Medicine; Visit Provider Specialist
PROC: 8E0Y0CZ Robotic Assisted Procedure of Lower Extremity, Open Approach (ICD-10-PCS; CPT 27447; principal; 2023-05-11 12:20)
DX: M17.11 Unilateral primary osteoarthritis, right knee (principal); M21.161 Varus deformity, not elsewhere classified, right knee; J69.0 Pneumonitis due to inhalation of food and vomit; I10 Essential (primary) hypertension; K21.9 Gastro-esophageal reflux disease without esophagitis
CPT/HCPCS: 20985; 27447; 36415; 51702; 71045; 73560; 80048; 83605; 85025; 97110; 97116; 97161; 97165; 97530; C1776; C9290; G0378; J0131; J0360; J0690; J1100; J2543; J2704; J2795; J3010; J3370; J3490; J7030

== ENCOUNTER → 2023-05-24 07:51 | Outpatient (BNVA) | payer OTHER, MEDICAID, SELFPAY | PROVIDERS: PCP Family Medicine; Visit Provider Nurse Practitioner | DX: Z96.651 Presence of right artificial knee joint (principal) | CPT/HCPCS: 73560; 73565 ==

== ENCOUNTER → 2023-06-23 08:32 | Outpatient (BNVA) | payer OTHER, MEDICAID, SELFPAY | PROVIDERS: PCP Family Medicine; Visit Provider Nurse Practitioner | DX: Z96.651 Presence of right artificial knee joint (principal) | CPT/HCPCS: 73560; 73565 ==

== ENCOUNTER → 2023-09-08 09:34 | Outpatient (BNVA) | payer MEDICAID, SELFPAY | PROVIDERS: PCP Family Medicine; Visit Provider Specialist | DX: Z96.651 Presence of right artificial knee joint (principal) | CPT/HCPCS: 73560; 73565 ==

== ENCOUNTER → 2024-05-24 08:50 | Outpatient (BNVA) | payer MEDICAID, SELFPAY | PROVIDERS: PCP Family Medicine; Visit Provider Specialist | DX: Z96.651 Presence of right artificial knee joint (principal); M17.11 Unilateral primary osteoarthritis, right knee; M54.50 Low back pain, unspecified | CPT/HCPCS: 73560; 73565 ==